=== PATIENT | male | born 1955 | race Caucasian/White ===

== ENCOUNTER 2017-10-14 11:00 | Outpatient (RCR) | payer MEDICARE, OTHER | END 2017-10-14 11:30 | disposition home or self-care (01) | LOC: PT 11:00 | DX: Z98.1 Arthrodesis status (principal); Z96.7 Presence of other bone and tendon implants ==

== ENCOUNTER → 2018-11-16 | Outpatient (CLI) | payer MEDICARE, OTHER | LOC: PT 11-08 13:00 | DX: Z47.1 Aftercare following joint replacement surgery (principal); Z96.651 Presence of right artificial knee joint ==

== ENCOUNTER 2019-01-19 14:00 | Outpatient (RCR) | payer MEDICARE, OTHER | END 2019-01-19 14:30 | disposition still patient (30) | LOC: PT 14:00 | DX: Z47.1 Aftercare following joint replacement surgery (principal); Z96.651 Presence of right artificial knee joint ==

== ENCOUNTER 2019-10-11 09:00 | Outpatient (RCR) | payer MEDICARE, OTHER | END 2019-10-11 09:30 | LOC: PT 09:00 | DX: M51.36 Other intervertebral disc degeneration, lumbar region (principal) ==